=== PATIENT | male | born 1955 | race Caucasian/White ===

== ENCOUNTER → 2016-09-07 | Outpatient (REF) | payer BC ==
[2016-09-07 12:34] LABS: ALBUMIN 3.9 GM/DL (3.2-5.2); ALBUMIN/GLOBULIN RATIO 1.18 (1.00-1.93); ALKALINE PHOSPHATASE 79 U/L (45-117); ALT/SGPT 38 U/L (12-78); ANION GAP 4 MEQ/L (8-16); AST/SGOT 22 U/L (15-37); BILIRUBIN,TOTAL 0.8 MG/DL (0.2-1.0); BLOOD UREA NITROGEN 17 MG/DL (7-18); CALCIUM LEVEL 9.3 MG/DL (8.5-10.1); CARBON DIOXIDE LEVEL 32 MEQ/L (21-32); CHLORIDE LEVEL 103 MEQ/L (98-107); CHOLESTEROL LEVEL 188 MG/DL (<200); CREATININE FOR GFR 0.95 MG/DL (0.70-1.30); GLOMERULAR FILTRATION RATE > 60.0 (>56); GLUCOSE, FASTING 90 MG/DL (70-105); POTASSIUM SERUM 4.2 MEQ/L (3.5-5.1); SODIUM LEVEL 139 MEQ/L (136-145); TOTAL PROTEIN 7.2 GM/DL (6.4-8.2); TRIGLYCERIDES LEVEL 79 MG/DL (<150)
== END ==
LOC: M SFHCLERA 08:01
PROVIDERS: ATTEND Family Medicine
DX: I10 Essential (primary) hypertension (principal)

== ENCOUNTER 2017-06-27 09:03 | Day surgery (SDC) | payer BC ==
[2017-06-27] MEDS: NS 1,000 ML IV (09:29)
[2017-06-27] MEDS ORDERED: PROPOFOL 200 MG/20 ML VIAL As Ordered (10:09)
== END 2017-06-27 11:00 | disposition home or self-care (01) ==
LOC: M OPP 09:03
DX: Z12.11 Encounter for screening for malignant neoplasm of colon (principal); K64.0 First degree hemorrhoids; K57.30 Diverticulosis of large intestine without perforation or abscess without bleeding; R12 Heartburn; K21.9 Gastro-esophageal reflux disease without esophagitis; I10 Essential (primary) hypertension; G47.30 Sleep apnea, unspecified; Z79.899 Other long term (current) drug therapy; Z99.89 Dependence on other enabling machines and devices
CPT/HCPCS: 45378

== ENCOUNTER → 2017-10-17 | Outpatient (REF) | payer BC ==
[2017-10-17 12:15] LABS: HEMATOCRIT 42.6 % (42.0-52.0); HEMOGLOBIN 14.2 g/dl (13.5-17.5); MEAN CORPUSCULAR HEMOGLOBIN 26.2 pg (27.0-33.0); MEAN CORPUSCULAR HGB CONC 33.3 g/dl (32.0-36.5); MEAN CORPUSCULAR VOLUME 78.7 fl (80.0-96.0); PLATELET COUNT, AUTOMATED 248 10^3/uL (150-450); RED BLOOD COUNT 5.41 10^6/uL (4.30-6.10); RED CELL DISTRIBUTION WIDTH 14.6 % (11.5-14.5); WHITE BLOOD COUNT 5.2 10^3/uL (4.0-10.0)
[2017-10-17 12:41] LABS: ALBUMIN/GLOBULIN RATIO 1.14 (1.00-1.93); ALKALINE PHOSPHATASE 90 U/L (45-117); ALT/SGPT 45 U/L (12-78); ANION GAP 9 MEQ/L (8-16); AST/SGOT 29 U/L (7-37); BILIRUBIN,TOTAL 0.6 MG/DL (0.2-1.0); BLOOD UREA NITROGEN 6 MG/DL (7-18); CALCIUM LEVEL 8.9 MG/DL (8.5-10.1); CARBON DIOXIDE LEVEL 25 MEQ/L (21-32); CHLORIDE LEVEL 105 MEQ/L (98-107); CHOLESTEROL LEVEL 182 MG/DL (<200); CREATININE FOR GFR 0.78 MG/DL (0.70-1.30); GLOMERULAR FILTRATION RATE > 60.0 (>56); GLUCOSE, FASTING 69 MG/DL (70-100); HDL CHOLESTEROL 65 MG/DL (>40); LDL CHOLESTEROL 103.6 MG/DL (<100); MAGNESIUM LEVEL 2.2 MG/DL (1.8-2.4); NON-HDL-C 117 MG/DL; POTASSIUM SERUM 4.2 MEQ/L (3.5-5.1); SODIUM LEVEL 139 MEQ/L (136-145); TOTAL PROTEIN 7.5 GM/DL (6.4-8.2); TRIGLYCERIDES LEVEL 67 MG/DL (<150)
[2017-10-17 13:15] LABS: CREATININE, URINE 58.4 MG/DL; MALB URINE SIEMENS 15.8 MG/L
[2017-10-17 13:44] LABS: ESTIMATED AVERAGE GLUCOSE 105 MG/DL (60-110); HEMOGLOBIN A1c 5.3 %
== END ==
LOC: M SFHCLERA 09:34
DX: K21.9 Gastro-esophageal reflux disease without esophagitis (principal); I10 Essential (primary) hypertension
CPT/HCPCS: 83735

== ENCOUNTER → 2018-07-11 | Outpatient (REF) | payer BC ==
[~2018-07-11] MED LIST: HYDR12.55; IRBE150T12; LATA5OPD OU; OMEP40CA2; VIAG100T
[2018-07-11 12:15] LABS: ALBUMIN 4.2 GM/DL (3.2-5.2); ALT/SGPT 45 U/L (12-78); BILIRUBIN,TOTAL 0.8 MG/DL (0.2-1.0); BLOOD UREA NITROGEN 13 MG/DL (7-18); CALCIUM LEVEL 9.9 MG/DL (8.8-10.2); CARBON DIOXIDE LEVEL 30 MEQ/L (21-32); CHLORIDE LEVEL 101 MEQ/L (98-107); CHOLESTEROL LEVEL 149 MG/DL (<200); CHOLESTEROL RISK RATIO 2.223 (<5); CREATININE FOR GFR 0.85 MG/DL (0.70-1.30); GLOMERULAR FILTRATION RATE > 60.0 (>49); GLUCOSE, FASTING 94 MG/DL (70-100); HDL CHOLESTEROL 67 MG/DL (>40); LDL CHOLESTEROL 68 MG/DL (<100); NON-HDL-C 82 MG/DL; POTASSIUM SERUM 3.9 MEQ/L (3.5-5.1); SODIUM LEVEL 137 MEQ/L (136-145); TOTAL PROTEIN 7.4 GM/DL (6.4-8.2); TRIGLYCERIDES LEVEL 72 MG/DL (<150)
[2018-07-11 12:18] LABS: HEMOGLOBIN A1c 5.7 %
== END ==
LOC: M SFHCLERA 08:13
PROVIDERS: ATTEND Family Medicine
DX: Z12.5 Encounter for screening for malignant neoplasm of prostate (principal); I10 Essential (primary) hypertension
CPT/HCPCS: 80053; 80061; 83036; G0103

== ENCOUNTER → 2019-01-18 | Outpatient (REF) | payer BC ==
[~2019-01-18] MED LIST changes: +LATA0.0013 OU; -LATA5OPD OU; -OMEP40CA2; +OMEP40CA97
[2019-01-18 17:57] LABS: BLOOD UREA NITROGEN 12 MG/DL (7-18); CALCIUM LEVEL 9.8 MG/DL (8.8-10.2); CARBON DIOXIDE LEVEL 30 MEQ/L (21-32); CHLORIDE LEVEL 99 MEQ/L (98-107); CREATININE FOR GFR 1.17 MG/DL (0.70-1.30); GLOMERULAR FILTRATION RATE > 60.0 (>49); GLUCOSE, FASTING 85 MG/DL (70-100); POTASSIUM SERUM 4.3 MEQ/L (3.5-5.1); SODIUM LEVEL 136 MEQ/L (136-145)
== END ==
LOC: M SFHCLERA 14:02
PROVIDERS: ATTEND Family Medicine
DX: I10 Essential (primary) hypertension (principal)

== ENCOUNTER → 2019-08-01 | Outpatient (REF) | payer BC ==
[~2019-08-01] MED LIST changes: -IRBE150T12; +IRBE150T7
[2019-08-01 12:41] LABS: ALBUMIN 4.4 GM/DL (3.2-5.2); ALT/SGPT 52 U/L (12-78); BILIRUBIN,TOTAL 0.5 MG/DL (0.2-1.0); BLOOD UREA NITROGEN 14 MG/DL (7-18); CALCIUM LEVEL 9.4 MG/DL (8.8-10.2); CARBON DIOXIDE LEVEL 30 MEQ/L (21-32); CHLORIDE LEVEL 103 MEQ/L (98-107); CREATININE FOR GFR 0.79 MG/DL (0.70-1.30); GLOMERULAR FILTRATION RATE > 60.0 (>49); GLUCOSE, FASTING 89 MG/DL (70-100); POTASSIUM SERUM 4.5 MEQ/L (3.5-5.1); SODIUM LEVEL 138 MEQ/L (136-145); TOTAL PROTEIN 7.5 GM/DL (6.4-8.2)
[2019-08-01 12:42] LABS: HEMOGLOBIN A1c 5.5 %
[2019-08-01 12:55] LABS: CREATININE, URINE 16.7 MG/DL; MALB URINE SIEMENS 7.3 MG/L; MAU/CREAT RATIO 43.7 MCG/MG (0.0-30.0)
== END ==
LOC: M SFHCLERA 09:43
PROVIDERS: ATTEND Family Medicine
DX: I10 Essential (primary) hypertension (principal)
CPT/HCPCS: 80053; 82043; 83036; 84443; G0103

== ENCOUNTER → 2020-07-04 | Outpatient (REF) | payer BC ==
[2020-07-04 13:43] LABS: BASO # 0.1 10^3/uL (0.0-0.2); BASO % 1.1 % (0.0-1.0); EOS # 0.3 10^3/uL (0.0-0.5); EOS % 5.6 % (0.0-3.0); HEMATOCRIT 41.8 % (42.0-52.0); HEMOGLOBIN 13.2 g/dl (13.5-17.5); LYMPH # 1.2 10^3/uL (1.5-5.0); MEAN CORPUSCULAR HGB CONC 31.6 g/dl (32.0-36.5); MONO # 1.2 10^3/uL (0.0-0.8); MONO % 20.9 % (0.0-5.0); NEUTROPHILS # 2.8 10^3/uL (1.5-8.5); PLATELET COUNT, AUTOMATED 244 10^3/uL (150-450); RED BLOOD COUNT 5.29 10^6/uL (4.30-6.10); WHITE BLOOD COUNT 5.5 10^3/uL (4.0-10.0)
[2020-07-04 14:12] LABS: HEMOGLOBIN A1c 5.3 %
[2020-07-04 14:16] LABS: ALBUMIN 4.4 GM/DL (3.2-5.2); ALT/SGPT 44 U/L (12-78); BILIRUBIN,TOTAL 1.1 MG/DL (0.2-1.0); BLOOD UREA NITROGEN 14 MG/DL (7-18); CARBON DIOXIDE LEVEL 29 MEQ/L (21-32); CHLORIDE LEVEL 99 MEQ/L (98-107); CHOLESTEROL LEVEL 149 MG/DL (<200); CHOLESTEROL RISK RATIO 2.041 (<5); CREATININE FOR GFR 1.06 MG/DL (0.70-1.30); GLOMERULAR FILTRATION RATE > 60.0 (>49); GLUCOSE, FASTING 96 MG/DL (70-100); HDL CHOLESTEROL 73 MG/DL (>40); LDL CHOLESTEROL 56 MG/DL (<100); NON-HDL-C 76 MG/DL; POTASSIUM SERUM 4.4 MEQ/L (3.5-5.1); SODIUM LEVEL 135 MEQ/L (136-145); TOTAL PROTEIN 7.7 GM/DL (6.4-8.2); TRIGLYCERIDES LEVEL 99 MG/DL (<150)
== END ==
LOC: M SFHCLERA 09:27
PROVIDERS: ATTEND Family Medicine
DX: I10 Essential (primary) hypertension (principal); E78.5 Hyperlipidemia, unspecified; Z13.1 Encounter for screening for diabetes mellitus

== ENCOUNTER → 2020-07-29 | Outpatient (REF) | payer BC ==
[2020-07-29 15:34] LABS: ALT/SGPT 37 U/L (12-78); BILIRUBIN,DIRECT 0.1 MG/DL (0.0-0.2); BILIRUBIN,TOTAL 0.5 MG/DL (0.2-1.0); BLOOD UREA NITROGEN 16 MG/DL (7-18); CALCIUM LEVEL 9.4 MG/DL (8.8-10.2); CARBON DIOXIDE LEVEL 26 MEQ/L (21-32); CHLORIDE LEVEL 108 MEQ/L (98-107); CREATININE FOR GFR 1.02 MG/DL (0.70-1.30); GLOMERULAR FILTRATION RATE > 60.0 (>49); GLUCOSE, FASTING 113 MG/DL (70-100); POTASSIUM SERUM 4.6 MEQ/L (3.5-5.1); SODIUM LEVEL 141 MEQ/L (136-145); TOTAL PROTEIN 7.1 GM/DL (6.4-8.2)
[2020-07-29 15:42] LABS: INR 0.88; PROTHROMBIN TIME 12.1 SECONDS (12.5-14.3)
== END ==
LOC: M SFHCLERA 12:46
PROVIDERS: ATTEND Family Medicine
DX: R17 Unspecified jaundice (principal)

== ENCOUNTER 2021-04-03 12:22 | Emergency (ER) | payer BC ==
[~2021-04-03] VITALS: Ht 177.8 cm; Wt 96.6 kg
[~2021-04-03 12:22] MED LIST changes: +OMEP40CA4; -OMEP40CA97
--- OUTSIDE RECORDS SUMMARY | 2021-04-03 12:30 | CCD ---
Author Author [facility] Organization [facility] Address Unknown Phone Unavailable Support Name Relationship Address Phone [employer] Next Of Kin [address] [place] [address] JAVIER BONILLA Next Of Kin [address] [place] [address] [employer] Next Of Kin [address] [place] [address] [place] [address] JAVIER BONILLA [place] [address] Unavailable Re-disclosure Warning The records that you are about to access may contain information from federally-assisted alcohol or drug abuse programs. If such information is present, then the following federally mandated warning applies: This information has been disclosed to you from records protected by federal confidentiality rules (42 CFR part 2). The federal rules prohibit you from making any further disclosure of this information unless further disclosure is expressly permitted by the written consent of the person to whom it pertains or as otherwise permitted by 42 CFR part 2. A general authorization for the release of medical or other information is NOT sufficient for this purpose. The Federal rules restrict any use of the information to criminally investigate or prosecute any alcohol or drug abuse patient.The records that you are about to access may contain highly sensitive health information, the redisclosure of which is protected by Article 27-F of the [facility] Public Health law. If you continue you may have access to information: Regarding HIV / AIDS; Provided by facilities licensed or operated by the [facility] Office of Mental Health; or Provided by the [facility] Office for People With Developmental Disabilities. If such information is present, then the following [facility] mandated warning applies: This information has been disclosed to you from confidential records which are protected by state law. State law prohibits you from making any further disclosure of this information without the specific written consent of the person to whom it pertains, or as otherwise permitted by law. Any unauthorized further disclosure in violation of state law may result in a fine or detention sentence or both. A general authorization for the release of medical or other information is NOT sufficient authorization for further disc losure. Family History Family Member Name Family Member Gender Family Member Status Date o f Status Description Data Source(s) Unknown Female Problem [facility] Unknown Male Problem [facility] ([facility] () Unknown Unknown Problem MEDENT ([facility]) mother- Encounters Encounter Providers Location Date Indications Data Source(s ) Unknown [address] [facility] [id number] 03/10/2021 12:00:00 AM EDT [facility] Unknown [address] [facility] [id number] 09/22/2020 12:00:00 AM EDT eCW1 (Critical access hospital) Outpatient [address] [facility] [address] [address] 07/15/2020 12:00:00 AM EST eCW1 (Critical access hospital) Unknown [address] [facility] [id number] 05/07/2020 12:00:00 AM EST eCW1 (Critical access hospital) Unknown [address] [facility] [address] 04/21/2020 12:00:00 AM EST eCW1 (Critical access hospital) Unknown [address] [facility] [address] [address] 04/16/2020 12:00:00 AM EST eCW1 (Critical access hospital) [facility] [address] [facility] [id number] 02/06/2020 12:00:00 AM EDT eCW1 (Critical access hospital) Immunizations Vaccine Date Status Description Data Source(s) COVID-19 VACCINE Pfizer 09/03/2020 12:00:00 AM EDT completed [facility] Vaccine Series Complete: YESThis Data wa s Submitted to [facility] Via [employer]. COVID-19 VACCINE Pfizer 08/13/2020 12:00:00 AM EST completed [facility] Vaccine Series Complete: NOThis Data was Submitted to [facility] Via [employer]. Medications Medication Brand Name Start Date Product Form Dose Route Admi nistrative Instructions Pharmacy Instructions Status Indications Reaction Description Data Source(s) 40 mg 03/21/2021 12:00:00 AM EDT capsule,delayed release (DR/EC) 90 TAKE ONE CAPSULE BY MOUTH EVERY DAY TAKE ONE CAPSULE BY MOUTH EVERY DAY SOLD: 03/22/2021 [facility] 300 mg 03/14/2021 12:00:00 AM EDT tablet 90 TAKE ONE TABLET BY MOUTH EVERY DAY TAKE ONE TABLET BY MOUTH EVERY DAY SOLD: 03/16/2021 [facility] 100 mg 01/12/2021 12:00:00 AM EDT tablet 6 TAKE ONE TABLET BY MOUTH EVERY DAY NEEDED TAKE ONE TABLET BY MOUTH EVERY DAY NEEDED SOLD: 03/13/2021 [facility] 100 mg 01/12/2021 12:00:00 AM EDT tablet 6 TAKE ONE TABLET BY MOUTH EVERY DAY NEEDED TAKE ONE TABLET BY MOUTH EVERY DAY NEEDED SOLD: 02/11/2021 [facility] 100 mg 01/12/2021 12:00:00 AM EDT tablet 6 TAKE ONE TABLET BY MOUTH EVERY DAY NEEDED TAKE ONE TABLET BY MOUTH EVERY DAY NEEDED SOLD: 01/14/2021 [facility] atorvastatin 20 MG Oral Tablet ATORVASTATIN CALCIUM 10/28/2020 1 2:00:00 AM EDT tablet 90 TAKE 1 TABLET BY MOUTH ONCE A DAY TAKE 1 TABLET BY MOUTH ONCE A DAY SOLD: 01/27/2021 [facility] atorvastatin 20 MG Oral Tablet ATORVASTATIN CALCIUM 10/28/2020 1 2:00:00 AM EDT tablet 90 TAKE 1 TABLET BY MOUTH ONCE A DAY TAKE 1 TABLET BY MOUTH ONCE A DAY SOLD: 10/29/2020 [facility] 40 mg 09/25/2020 12:00:00 AM EDT capsule,delayed release (DR/EC) 90 TAKE ONE CAPSULE BY MOUTH EVERY DAY TAKE ONE CAPSULE BY MOUTH EVERY DAY SOLD: 09/26/2020 [facility] 40 mg 09/25/2020 12:00:00 AM EDT capsule,delayed release (DR/EC) 90 TAKE ONE CAPSULE BY MOUTH EVERY DAY TAKE ONE CAPSULE BY MOUTH EVERY DAY SOLD: 12/23/2020 [facility] 300 mg 09/17/2020 12:00:00 AM EDT tablet 90 TAKE ONE TABLET BY MOUTH EVERY DAY TAKE ONE TABLET BY MOUTH EVERY DAY SOLD: 12/17/2020 [facility] 300 mg 09/17/2020 12:00:00 AM EDT tablet 90 TAKE ONE TABLET BY MOUTH EVERY DAY TAKE ONE TABLET BY MOUTH EVERY DAY SOLD: 09/18/2020 [facility] 0.01 % 08/09/2020 12:00:00 AM EST drops 7 INSTILL 1 DROP INTO BOTH EYES AT BEDTIME DIRECTED INSTILL 1 DROP INTO BOTH EYES AT BEDTIME DIRECTED S OLD: 08/10/2020 [facility] 100 mg 07/16/2020 12:00:00 AM EST tablet 6 TAKE ONE TABLET BY MOUTH EVERY DAY NEEDED TAKE ONE TABLET BY MOUTH EVERY DAY NEEDED SOLD: 09/15/2020 [facility] 100 mg 07/16/2020 12:00:00 AM EST tablet 6 TAKE ONE TABLET BY MOUTH EVERY DAY NEEDED TAKE ONE TABLET BY MOUTH EVERY DAY NEEDED SOLD: 10/13/2020 [facility] 100 mg 07/16/2020 12:00:00 AM EST tablet 6 TAKE ONE TABLET BY MOUTH EVERY DAY NEEDED TAKE ONE TABLET BY MOUTH EVERY DAY NEEDED SOLD: 12/09/2020 [facility] 100 mg 07/16/2020 12:00:00 AM EST tablet 6 TAKE ONE TABLET BY MOUTH EVERY DAY NEEDED TAKE ONE TABLET BY MOUTH EVERY DAY NEEDED SOLD: 11/11/2020 [facility] 100 mg 07/16/2020 12:00:00 AM EST tablet 6 TAKE ONE TABLET BY MOUTH EVERY DAY NEEDED TAKE ONE TABLET BY MOUTH EVERY DAY NEEDED SOLD: 07/18/2020 [facility] 100 mg 07/16/2020 12:00:00 AM EST tablet 6 TAKE ONE TABLET BY MOUTH EVERY DAY NEEDED TAKE ONE TABLET BY MOUTH EVERY DAY NEEDED SOLD: 08/16/2020 [facility] 300 mg 06/10/2020 12:00:00 AM EST tablet 90 TAKE ONE TABLET BY MOUTH EVERY DAY TAKE ONE TABLET BY MOUTH EVERY DAY SOLD: 06/11/2020 [facility] 50 mcg/actuation 04/22/2020 12:00:00 AM EST spray,suspension 16 SPRAY 1 SPRAY IN EACH NOSTRIL ONCE A DAY SPRAY 1 SPRAY IN EACH NOSTRIL ONCE A DAY SOLD: 04/24/2020 [facility] 40 mg 03/29/2020 12:00:00 AM EDT capsule,delayed release (DR/EC) 90 TAKE ONE CAPSULE BY MOUTH EVERY DAY TAKE ONE CAPSULE BY MOUTH EVERY DAY SOLD: 06/29/2020 [facility] 40 mg 03/29/2020 12:00:00 AM EDT capsule,delayed release (DR/EC) 90 TAKE ONE CAPSULE BY MOUTH EVERY DAY TAKE ONE CAPSULE BY MOUTH EVERY DAY SOLD: 03/31/2020 [facility] 100 mg 02/13/2020 12:00:00 AM EDT tablet 6 TAKE ONE TABLET BY MOUTH EVERY DAY NEEDED TAKE ONE TABLET BY MOUTH EVERY DAY NEEDED SOLD: 02/15/2020 [facility] 300 mg 12/17/2019 12:00:00 AM EDT tablet 90 TAKE 1 TABLET BY MOUTH ONCE A DAY TAKE 1 TABLET BY MOUTH ONCE A DAY SOLD: 03/15/2020 [facility] atorvastatin 20 MG Oral Tablet ATORVASTATIN CALCIUM 10/30/2019 1 2:00:00 AM EDT tablet 90 TAKE ONE TABLET BY MOUTH EVERY D AY TAKE ONE TABLET BY MOUTH EVERY DAY SOLD: 02/03/2020 [facility] atorvastatin 20 MG Oral Tablet ATORVASTATIN CALCIUM 10/30/2019 1 2:00:00 AM EDT tablet 90 TAKE ONE TABLET BY MOUTH EVERY D AY TAKE ONE TABLET BY MOUTH EVERY DAY SOLD: 08/02/2020 [facility] atorvastatin 20 MG Oral Tablet ATORVASTATIN CALCIUM 10/30/2019 1 2:00:00 AM EDT tablet 90 TAKE ONE TABLET BY MOUTH EVERY D AY TAKE ONE TABLET BY MOUTH EVERY DAY SOLD: 05/05/2020 [facility] 25 mg 09/26/2019 12:00:00 AM EDT tablet 90 TAKE 1 TABLET BY MOUTH ONCE A DAY IN THE MORNING TAKE 1 TABLET BY MOUTH ONCE A DAY IN THE MORNING SOLD: 06/27/2020 [facility] 25 mg 09/26/2019 12:00:00 AM EDT tablet 90 TAKE 1 TABLET BY MOUTH ONCE A DAY IN THE MORNING TAKE 1 TABLET BY MOUTH ONCE A DAY IN THE MORNING SOLD: 03/24/2020 [facility] 50 mcg/actuation 08/17/2019 12:00:00 AM EDT spray,suspension 16 SPRAY 1 SPRAY IN EACH NOSTRIL ONCE A DAY SPRAY 1 SPRAY IN EACH NOSTRIL ONCE A DAY SOLD: 02/15/2020 [facility] Insurance Providers Payer name Policy type / Coverage type Policy ID Covered republican ID Covered republican's relationship to [place] Policy [place] Plan Information [employer] [place] [id number] SP [id number] [employer] [place] 304/[id number] SP [id number] BCBS [facility] [id number] Self S [id number] BCBS [facility] B [id number] Self S [id number] [facility] Part B [id number] Self [id number] BCBS [employer] [id number] Self [id number] BCBS [employer] [id number] Self [id number] [employer] [id number] Self [id number] [employer] [id number] Self BCBS [place] PPO 302/307 [id number] SP [id number] [employer] [place] Commercial [id number] Self [id number] BCBS [place] PPO 302/307 [id number] [id number] ANSI-Commercial [id number] BCBS [place] PPO 302/307 [id number] SP [id number] SP [id number] ANSI-Commercial [id number] [place]BS [place] PPO 302/307 [id number] SP [id number] Problems, Conditions, and Diagnoses Code Display Name Description Problem Type Effective Dates Data Source(s) G47.00 [id number] Insomnia, unspecified type Problem 12:00:00 AM EST eCW1 ([facility]) Surgeries/Procedures No Information Results ID Date Data Source PT-INR 07/29/2020 12:00:00 AM EST eCW1 (Critical access hospital) Name Value Range Interpretation Code Description Data Sybil rce(s) Supporting Document(s) INR in Platelet poor plasma by Coagulation assay 0.88 INR eCW1 ([facility]) Prothrombin time (PT) 12.1 12.5-14.3 PROTHROMBIN TI ME eCW1 ([facility]) ID Date Data Source Comprehensive Metabolic Profile (CMP) 07/29/2020 12:00:00 AM EST eCW1 ([facility]) Name Value Range Interpretation Code Description Data Sybil rce(s) Supporting Document(s) 16 7-18 BLOOD UREA NITROGEN eCW1 ([facility]) 113 70-100 GLUCOSE, FASTING eCW1 (Critical access hospital) 4.6 3.5-5.1 POTASSIUM SERUM eCW1 ([facility]) > 60.0 >49 GLOMERULAR FILTRATION RATE eCW 1 ([facility]) 141 136-145 SODIUM LEVEL eCW1 ([facility]) 1.02 0.70-1.30 CREATININE FOR GFR eCW1 ([facility]) 15 7-37 AST/SGOT eCW1 ([facility]) 26 21-32 CARBON DIOXIDE LEVEL eCW1 ([facility]) 108 98-107 CHLORIDE LEVEL eCW1 ([facility]) 9.4 8.8-10.2 CALCIUM LEVEL eCW1 ([facility]) 37 12-78 ALT/SGPT eCW1 ([facility]) 7.1 6.4-8.2 TOTAL PROTEIN eCW1 ([facility]) 0.5 0.2-1.0 BILIRUBIN,TOTAL eCW1 ([facility]) 70 45-117 ALKALINE PHOSPHATASE eCW1 ([facility]) 1.3 ALBUMIN/GLOBULIN RATIO eCW1 ([facility]) 4.0 3.2-5.2 ALBUMIN eCW1 ([facility]) ID Date Data Source BILIRUBIN,DIRECT 07/29/2020 12:00:00 AM EST eCW1 (Critical [facility] hospital) Name Value Range Interpretation Code Description Data Sybil rce(s) Supporting Document(s) 0.1 0.0-0.2 BILIRUBIN,DIRECT eCW1 ([facility]) Procedure Social History Code Duration Value Status Description Data Source(s ) Smoking 10/29/2020 12:00:00 AM EDT Never Smoker completed Never S moker eCW1 ([facility]) Smoking 07/15/2020 12:00:00 AM EST Never Smoker completed Never S moker eCW1 ([facility]) Smoking 07/15/2020 12:00:00 AM EST Never Smoker completed Never S moker eCW1 ([facility]) Vital Signs ID Date Data Source UNK Name Value Range Interpretation Code Description Data Source(s) Body weight 212 [lb_av] 212 [lb_av] eCW1 ([facility]) Body height 70 [in_i] 70 [in_i] eCW1 ([facility] hospital) Body mass index (BMI) [Ratio] 30.42 kg/m2 30.42 kg/m2 eCW1 ([facility]) Heart rate 80 /min 80 /min eCW1 ([facility]) Respiratory rate 16 /min 16 /min eCW1 ([facility]) Body temperature 99.0 [degF] 99.0 [degF] eCW1 ( [facility]) Systolic blood pressure 145 mm[Hg] 145 mm[Hg] e CW1 ([facility]) Diastolic blood pressure 93 mm[Hg] 93 mm[Hg] eCW1 ([facility])
--- OUTSIDE RECORDS SUMMARY | 2021-04-03 12:30 | CCD ---
Author Author [facility] Organization [facility] Address Unknown Phone Unavailable Care Team Providers Care Aviation Safety Technician Name Role Phone Chandrakant Hopkins Unavailable PROBLEMS Type Condition ICD9-CM Code XUL96-LP Code Onset Dates Condition S tatus W/U Status Risk SNOMED Code Notes Problem Left-sided low back pain with left-sided sciatica M54.42 Active confirmed 039979659 Problem Essential hypertension with goal blood pressure less t forrester 140\/90 I10 Active confirmed 18104874 Problem Erectile dysfunction due to diseases classified elsewhere N52.1 Active confirmed 373731989 Problem Seasonal allergies J30.2 Active confirmed 4 85876060 Problem DASH on CPAP G47.33 Active confirmed 12564123 Problem Insomnia, unspecified type G47.00 Active confirmed 272878254 Problem Gastroesophageal reflux disease without esophagitis K21.9 Active confirmed 062674771 Problem Constipation, unspecified constipation type K59.00 Active confirmed 86886902 Problem Essential hypertension I10 Active confirmed 89686303 Problem Erectile dysfunction, unspecified erectile dysfunction typ e N52.9 Active confirmed 577584882 Problem Hyperlipidemia, unspecified hyperlipidemia type E7 8.5 Active confirmed 97963794 ALLERGIES No Known Allergies ENCOUNTERS from 1955 to 2021-03-13 Encounter Location Date Provider Diagnosis [address] [phone] [place] [address] 05 Mar, 2021 Chandrakant Hopkins IMMUNIZATIONS Vaccine Route Administration Date Status Influenza 6mo & up Fluzone Unknown Jun 30, 2017 Refus ed SOCIAL HISTORY Tobacco Use: Social History Observation Description Date Details (start date - stop date) Never Smoker Sex Assigned At : Social History Observation Description Sex Assigned At Unknown Education: Question Answer Notes Level of Education: High School Language: Question Answer Notes Languages spoken: Citizen Of [place] Latter-Day: Question Answer Notes Latter-Day 33 None Domestic Violence: Question Answer Notes Status: Sexual Hx: Question Answer Notes Had sex in the last 12 months (vaginal, oral, or anal)? Yes Have you ever had an STD? No Prevention Strategies discussed: Other with Women only Use protection? No Alcohol Screening: Question Answer Notes Did you have a drink containing alcohol in the past year? Ye s Points 1 Interpretation Negative How often did you have six or more drinks on one occas ion in the past year? Never (0 points) How many drinks did you have on a typica l day when you were drinking in the past year? 1 or 2 (0 points) How often did you have a drink containing alcohol in t he past year? Monthly or less (1 point) BMI Care Goal Follow-Up Question Answer Notes Above Normal BMI Follow-Up Giving encouragement to exercise Tobacco Use: Question Answer Notes Are you a: never smoker REASON FOR REFERRAL No Information VITAL SIGNS No information MEDICATIONS Medication SIG (Take, Route, Frequency, Duration) Notes Start Da te End Date Status Omeprazole 40 MG 1 capsule Orally once daily for 90 days Active Fluticasone Propionate 50 MCG/ACT 1 spray in each nost ril Nasally Once a day for 90 days Not-Taking Fish Oil 500 MG 1 capsule Orally Twice a day for 30 day(s) Not-Taking Irbesartan 300 MG 1 tablet Orally Once a day for 90 days Active Sildenafil Citrate 100 MG TAKE ONE TABLET BY MOUTH EVERY DAY NEEDED for 30 Active Aspirin 81 MG 1 tablet Orally Once a day Jun, Active Atorvastatin Calcium 20 MG 1 tablet Orally Once a day for 90 Active PROCEDURES No Information RESULTS No Results REASON FOR VISIT PA Sildenafil Citrate 100mg tablets, #12/03 MEDICAL (GENERAL) HISTORY Type Description Date Medical History Gastroesophageal reflux disease without esophagitis Medical History Left-sided low back pain with left-sided sciatica Medical History Erectile dysfunction due to diseases cla ssified elsewhere Medical History DASH on CPAP Medical History Essential hypertension with goal blood pressure less than 140\/90 Medical History Insomnia Surgical History Broken nose 19yrs old Surgical History Appendicitis 20yrs old Surgical History Endoscopy, colonoscopy 06/2017 Hospitalization History surgical related Goals Section No Information Health Concerns No Information MEDICAL EQUIPMENT No Information MENTAL STATUS No Information FUNCTIONAL STATUS No Information ASSESSMENTS No Information PLAN OF TREATMENT Medication Medication Name Sig Start Date Stop Date Omeprazole 40 MG 1 capsule Orally once daily for 90 days Sildenafil Citrate 100 MG TAKE ONE TABLET BY MOUTH EVERY DAY NEEDED for 30 Irbesartan 300 MG 1 tablet Orally Once a day for 90 days Next Appt Details Provider Name:Chandrakant Hopkins, 2021-05-06 07:30:00 AM, [id number] [facility], , [place], [address], Insurance Providers Payer Name Payer Address Payer Phone Insured Name Patient Relati onship to Insured Coverage Start Date Coverage End Date BCBS [place] PPO [phone] [facility] [place] [address] ALEXEY BONILLA 2014
[2021-04-03] MEDS: TETRACAINE 0.5% OPHTH SOLN 4ML OS ONE (15:40)
[2021-04-03] MEDS: FLUORESCEIN OPHTH 1 MG STRIP OS ONE (15:40)
[2021-04-03] MEDS ORDERED: NEUR300C PO (16:34)
[2021-04-03] MEDS ORDERED: VALT1TAB PO (16:34)
--- OUTSIDE RECORDS SUMMARY | 2021-04-03 16:49 | CCD ---
Author Author [facility] Organization [facility] Address Unknown Phone Unavailable Support Name Relationship Address Phone [employer] Next Of Kin [address] [place] [address] JAVIER BONILLA Next Of [place] [address] [place] [address] [employer] Next Of Kin [address] [place] [address] [place] [address] JAVIER BONILLA [address] [address] Unavailable Re-disclosure Warning The records that you [...] is protected by Article 27-F of the [facility] Public Health law. If you continue you may have access to information: Regarding HIV / AIDS; Provided by facilities licensed or operated by the [facility] Office of Mental Health; or Provided by the [facility] Office for People With Developmental Disabilities. If such information is present, then the following [facility] mandated warning applies: This information has [...] law may result in a fine or nursing home sentence or both. A general authorization for the release of medical or other information is NOT sufficient authorization for further disc losure. Family History Family Member Name Family Member Gender Family Member Status Date o f Status Description Data Source(s) Unknown Female Problem [facility] ([facility] Unknown Male Problem [facility] ([facility] () Unknown Unknown Problem MEDENT ([facility], [facility]) mother- Encounters Encounter Providers Location Date Indications Data Source(s ) Unknown [address] [facility] [id number] 03/10/2021 12:00:00 AM EDT eCW1 [facility]) Unknown [address] [facility] [id number] 09/22/2020 12:00:00 AM EDT eCW1 ([facility]) Outpatient [address] [facility] [address] [address] 07/15/2020 12:00:00 AM EST eCW1 ([facility]) Unknown [address] [facility] [id number] 05/07/2020 12:00:00 AM EST eCW1 ([facility]) Unknown [address] [facility] [address] [address] 04/21/2020 12:00:00 AM EST eCW1 ([facility]) Unknown [address] [facility] [address] [id number] 04/16/2020 12:00:00 AM EST eCW1 ([facility]) [facility] [address] [facility] [id number] 02/06/2020 12:00:00 AM EDT eCW1 ([facility]) Immunizations Vaccine Date Status Description Data Source(s) COVID-19 VACCINE Pfizer 09/03/2020 12:00:00 AM EDT completed [facility] Vaccine Series Complete: YESThis Data wa s Submitted to [facility] [employer]. COVID-19 VACCINE Pfizer 08/13/2020 12:00:00 AM EST completed [facility] Vaccine Series Complete: NOThis Data was Submitted to [facility] [employer]. Medications Medication Brand Name Start Date Product [...] BY MOUTH EVERY DAY NEEDED SOLD: 11/11/2020 [facility] 100 mg 07/16/2020 12:00:00 AM [...] EACH NOSTRIL ONCE A DAY SOLD: 04/24/2020 [facility] 40 mg 03/29/2020 12:00:00 AM [...] type / Coverage type Policy ID Covered libertarian ID Covered libertarian's relationship to [place] Policy [place] Plan Information [employer] [place] 304/804 [id number] SP [id number] [employer] [place] 304/804 [id number] SP [id number] BCBS [facility] [id number] Self S [id number] BCBS [facility] B [id number] Self S [id number] [facility] Part B [id number] Self [id number] [employer]BS [employer] [id number] Self [id number] [employer]BS [employer] [id number] Self [id number] [employer] [id number] Self [id number] [employer] [id number] Self [employer]BS [place] P[place] 302/307 [id number] SP [id number] [employer] [place] Commercial [id number] Self [id number] [employer] [place] P[place] 302/307 [id number] [place] [id number] [employer] [id number] [employer]BS [place] P[place] 302/307 [id number] SP [id number] SP [id number] [employer] [id number] [employer] [place] PPO 302/307 [id number] SP [id number] Problems, Conditions, and Diagnoses Code Display Name Description Problem Type Effective Dates Data Source(s) G47.00 [id number] Insomnia, unspecified type Problem 12:00:00 AM EST eCW1 ([facility]) Surgeries/Procedures No Information Results ID Date Data Source PT-INR 07/29/2020 12:00:00 AM EST e[facility] Name Value Range Interpretation Code Description Data Sybil rce(s) Supporting Document(s) INR in Platelet poor plasma by Coagulation assay 0.88 INR eCW1 ([facility]) Prothrombin time (PT) 12.1 12.5-14.3 PROTHROMBIN TI ME eCW1 ([facility]) ID Date Data Source Comprehensive Metabolic Profile (CMP) 07/29/2020 12:00:00 AM EST eCW1 ([facility]) Name Value Range Interpretation Code Description Data Sybil rce(s) Supporting Document(s) 16 7-18 BLOOD UREA NITROGEN eCW1 ([facility]) 113 70-100 GLUCOSE, FASTING eCW1 ([facility]) 4.6 3.5-5.1 POTASSIUM SERUM eCW1 ([facility]) > 60.0 >49 GLOMERULAR FILTRATION RATE eCW 1 ([facility]) 141 136-145 SODIUM LEVEL eCW1 ([facility]) 1.02 0.70-1.30 CREATININE FOR GFR eCW1 ([facility]) 15 7-37 AST/SGOT eCW1 ([facility]) 26 21-32 CARBON DIOXIDE LEVEL eCW1 ([facility]) 108 98-107 CHLORIDE LEVEL eCW1 ([facility]) 9.4 8.8-10.2 CALCIUM LEVEL eCW1 ([facility]) 37 12-78 ALT/SGPT eCW1 ([facility]) 7.1 6.4-8.2 TOTAL PROTEIN eCW1 ([facility]) 0.5 0.2-1.0 BILIRUBIN,TOTAL eCW1 ([facility]) 70 45-117 ALKALINE PHOSPHATASE eCW1 ([facility]) 1.3 ALBUMIN/GLOBULIN RATIO eCW1 ([facility]) 4.0 3.2-5.2 ALBUMIN eCW1 ([facility]) ID Date Data Source BILIRUBIN,DIRECT 07/29/2020 12:00:00 AM EST eCW1 ([facility]) Name Value Range Interpretation Code Description Data Sybil rce(s) Supporting Document(s) 0.1 0.0-0.2 BILIRUBIN,DIRECT eCW1 ([facility]) Procedure Social History Code Duration Value Status Description Data Source(s ) Smoking 10/29/2020 12:00:00 AM EDT Never Smoker completed Never S moker eCW1 ([facility]) Smoking 07/15/2020 12:00:00 AM EST Never Smoker completed Never S moker eCW1 ([facility]) Smoking 07/15/2020 12:00:00 AM EST Never Smoker completed Never S moker eCW1 ([facility]) Vital Signs ID Date Data Source UNK Name Value Range Interpretation Code Description Data Source(s) Body weight 212 [lb_av] 212 [lb_av] eCW1 ([facility]) Body height 70 [in_i] 70 [in_i] eCW1 ([facility]) Body mass index (BMI) [Ratio] 30.42 kg/m2 30.42 kg/m2 eCW1 ([facility]) Heart rate 80 /min 80 /min eCW1 ([facility]) Respiratory rate 16 /min 16 /min eCW1 ([facility]) Body temperature 99.0 [degF] 99.0 [degF] eCW1 ( [facility]) Systolic blood pressure 145 mm[Hg] 145 mm[Hg] e CW1 ([facility]) Diastolic blood pressure 93 mm[Hg] 93 mm[Hg] eCW1 ([facility])
[2021-04-03 17:36] VITALS: BP 180/101
== END 2021-04-03 17:38 | disposition home or self-care (01) ==
LOC: M ED 12:22
DX: H57.11 Ocular pain, right eye (principal); B02.8 Zoster with other complications; I10 Essential (primary) hypertension; Z79.899 Other long term (current) drug therapy

== ENCOUNTER → 2021-07-02 | Outpatient (REF) | payer BC ==
[~2021-07-02] MED LIST changes: +NEUR300C PO; +VALT1TAB PO
[2021-07-02 14:13] LABS: ALBUMIN 3.9 GM/DL (3.2-5.2); ALT/SGPT 46 U/L (12-78); BILIRUBIN,TOTAL 0.6 MG/DL (0.2-1.0); BLOOD UREA NITROGEN 12 MG/DL (7-18); CALCIUM LEVEL 9.5 MG/DL (8.8-10.2); CARBON DIOXIDE LEVEL 27 MEQ/L (21-32); CHLORIDE LEVEL 108 MEQ/L (98-107); CHOLESTEROL LEVEL 138 MG/DL (<200); CHOLESTEROL RISK RATIO 2.156 (<5); CREATININE FOR GFR 0.82 MG/DL (0.70-1.30); GLOMERULAR FILTRATION RATE > 60.0 (>49); GLUCOSE, FASTING 93 MG/DL (70-100); HDL CHOLESTEROL 64 MG/DL (>40); LDL CHOLESTEROL 54 MG/DL (<100); NON-HDL-C 74 MG/DL; SODIUM LEVEL 141 MEQ/L (136-145); TOTAL PROTEIN 7.1 GM/DL (6.4-8.2); TRIGLYCERIDES LEVEL 99 MG/DL (<150)
== END ==
LOC: M WUC 11:16
PROVIDERS: ATTEND Family Medicine
DX: Z12.5 Encounter for screening for malignant neoplasm of prostate (principal); E78.5 Hyperlipidemia, unspecified
CPT/HCPCS: 36415; 80053; 80061; G0103

== ENCOUNTER → 2022-05-05 | Outpatient (CLI) | payer BC ==
[2022-05-05 13:49] LABS: ALKALINE PHOSPHATASE 64 U/L (46-116); ALT/SGPT 50 U/L (7.0-40); AST/SGOT 29 U/L (<34); BILIRUBIN,TOTAL 0.5 MG/DL (0.3-1.2); BLOOD UREA NITROGEN 11 MG/DL (9-23); CALCIUM LEVEL 9.3 MG/DL (8.3-10.6); CARBON DIOXIDE LEVEL 27 MMOL/L (20-31); CHLORIDE LEVEL 103 MMOL/L (98-107); CHOLESTEROL LEVEL 143 MG/DL (<200); CHOLESTEROL RISK RATIO 2.34 (<5); CREATININE FOR GFR 0.84 MG/DL (0.70-1.30); GLOMERULAR FILTRATION RATE > 60.0 (>49); GLUCOSE, FASTING 92 MG/DL (74-106); HDL CHOLESTEROL 61.1 MG/DL (>40); LDL CHOLESTEROL 64.7 MG/DL (<100); NON-HDL-C 82 MG/DL; POTASSIUM SERUM 4.2 MMOL/L (3.5-5.1); SODIUM LEVEL 138 MMOL/L (136-145); TRIGLYCERIDES LEVEL 86 MG/DL (<150)
== END ==
LOC: M WUC 09:37
PROVIDERS: ATTEND Family Medicine
DX: E78.5 Hyperlipidemia, unspecified (principal)

== ENCOUNTER → 2023-03-31 | Outpatient (CLI) | payer MEDICARE ==
[~2023-03-31] MED LIST changes: +ATOR1TAB21 PO; +B-12100010 PO; +BAYE81TA7 PO; +D32000CA PO; +FLUT15.820; +GABA-282 PO; +IRBE300T7 PO; +LEXA1TAB2 PO; +PANT40TA29 PO; +XALA0.007 OU
[2023-03-31 14:31] LABS: HEMOGLOBIN A1c 4.8 % (4.0-6.0)
[2023-03-31 14:44] LABS: ALKALINE PHOSPHATASE 76 U/L (46-116); ALT/SGPT 38 U/L (7.0-40); AST/SGOT 26 U/L (<34); BILIRUBIN,TOTAL 0.9 MG/DL (0.3-1.2); BLOOD UREA NITROGEN 12 MG/DL (9-23); CALCIUM LEVEL 9.2 MG/DL (8.3-10.6); CARBON DIOXIDE LEVEL 27 MMOL/L (20-31); CHLORIDE LEVEL 102 MMOL/L (98-107); CHOLESTEROL LEVEL 136 MG/DL (<200); CHOLESTEROL RISK RATIO 1.83 (<5); CREATININE FOR GFR 0.88 MG/DL (0.70-1.30); GLOMERULAR FILTRATION RATE > 60.0 (>49); GLUCOSE, FASTING 83 MG/DL (74-106); HDL CHOLESTEROL 74.2 MG/DL (>40); NON-HDL-C 61.8 MG/DL; POTASSIUM SERUM 4.2 MMOL/L (3.5-5.1); SODIUM LEVEL 139 MMOL/L (136-145); TOTAL PROTEIN 7.1 G/DL (5.7-8.2); TRIGLYCERIDES LEVEL 74 MG/DL (<150)
== END ==
LOC: M WUC 09:24
PROVIDERS: ATTEND Family Medicine
DX: E78.5 Hyperlipidemia, unspecified (principal); Z12.5 Encounter for screening for malignant neoplasm of prostate; E66.3 Overweight
CPT/HCPCS: 36415; 80053; 80061; 83036; G0103

== ENCOUNTER 2023-08-09 10:59 | Day surgery (SDC) | payer MEDICARE ==
[~2023-08-09] VITALS: Ht 175.3 cm; Wt 97.6 kg
[~2023-08-09 10:59] MED LIST changes: +IRBE150T27; -IRBE150T7; +IRBE300T25 PO; -IRBE300T7 PO; +MIDAZOLAM INJ 2MG/2ML VIAL As Ordered ONE; +fentaNYL 100 MCG/2 ML INJECTION As Ordered ONE
[2023-08-09] MEDS: PROPARACAINE 0.5% OPHTH SOL 15ML OD ONE (11:35)
[2023-08-09] MEDS: TROPICAMIDE 1% OPHTH SOLN 15ML OD SCH (11:35)
[2023-08-09] MEDS: OFLOXACIN 0.3 % (OCUFLOX) OPTH SOL 5ML OD SCH (11:36)
[2023-08-09] MEDS: ATROPINE SULFATE 1% OPHTH SOLN 2ML BTL OD SCH (11:36)
[2023-08-09] MEDS: PHENYLEPHRINE 2.5% OPHTH SOL 2ML OD SCH (11:36)
[2023-08-09] MEDS: BSS IRR 500ML/OMIDRIA 4ML IRR BAG (OR ONLY) As Ordered ONE (12:17)
[2023-08-09] MEDS: CEFUROXIME 1MG/0.1ML INTRACAMERAL INJ As Ordered ONE (12:17)
[2023-08-09] MEDS: LIDOCAINE 1% SDV 5ML VIAL As Ordered ONE (12:17)
[2023-08-09] MEDS ORDERED: TOBRADEX OPHTH SUSP 2.5 ML As Ordered ONE (12:31)
[2023-08-09 12:38] VITALS: BP 157/74; TEMP 98.1; O2SAT 100
== END 2023-08-09 12:55 | disposition home or self-care (01) ==
LOC: M SDC 10:59
PROVIDERS: ATTEND Ophthalmology
DX: H25.11 Age-related nuclear cataract, right eye (principal); I10 Essential (primary) hypertension; E78.00 Pure hypercholesterolemia, unspecified; G47.30 Sleep apnea, unspecified; Z79.899 Other long term (current) drug therapy; Z79.82 Long term (current) use of aspirin
CPT/HCPCS: 66984; J0697; J1097; J2250; J3010; V2788

== ENCOUNTER → 2024-01-11 08:42 | Day surgery (SDC) | payer MEDICARE ==
[2023-01-10] MEDS: NS 1,000 ML IV ONE (09:25)
[2023-01-10 10:56] VITALS: TEMP 98.1
[2023-01-10 11:15] VITALS: BP 131/73; O2SAT 99
[~2024-01-11] VITALS: Ht 175.3 cm; Wt 94.3 kg
[~2024-01-11 08:42] MED LIST changes: +LIDOCAINE 2% 100MG/5ML SDV (FOR ANES.) As Ordered ONE; -MIDAZOLAM INJ 2MG/2ML VIAL As Ordered ONE; +propofoL 200 MG/20 ML VIAL As Ordered ONE
== END | disposition home or self-care (01) ==
LOC: M OPP 01-10 08:54
PROVIDERS: ATTEND Internal Medicine Gastroenterology
DX: Z12.11 Encounter for screening for malignant neoplasm of colon (principal); Z80.0 Family history of malignant neoplasm of digestive organs; K64.0 First degree hemorrhoids; K31.7 Polyp of stomach and duodenum; K22.89 Other specified disease of esophagus; K29.50 Unspecified chronic gastritis without bleeding; R12 Heartburn; Z79.02 Long term (current) use of antithrombotics/antiplatelets; Z79.52 Long term (current) use of systemic steroids; Z79.891 Long term (current) use of opiate analgesic; Z79.899 Other long term (current) drug therapy
CPT/HCPCS: 43239; 88305; G0105; J3010

== ENCOUNTER → 2024-03-19 | Outpatient (CLI) | payer MEDICARE ==
[~2024-03-19] MED LIST changes: +GABA-1172 PO; -GABA-282 PO; -LIDOCAINE 2% 100MG/5ML SDV (FOR ANES.) As Ordered ONE; -fentaNYL 100 MCG/2 ML INJECTION As Ordered ONE; -propofoL 200 MG/20 ML VIAL As Ordered ONE
[2024-03-19 12:56] LABS: ALBUMIN 4.2 G/DL (3.2-5.2); ALKALINE PHOSPHATASE 82 U/L (46-116); ALT/SGPT 33 U/L (7.0-40); AST/SGOT 21 U/L (<34); BILIRUBIN,TOTAL 1.1 MG/DL (0.3-1.2); BLOOD UREA NITROGEN 15 MG/DL (9-23); CALCIUM LEVEL 9.8 MG/DL (8.3-10.6); CARBON DIOXIDE LEVEL 26 MMOL/L (20-31); CHLORIDE LEVEL 106 MMOL/L (98-107); CHOLESTEROL LEVEL 139 MG/DL (<200); CREATININE FOR GFR 0.82 MG/DL (0.70-1.30); GLOMERULAR FILTRATION RATE > 60.0 (>49); GLUCOSE, FASTING 96 MG/DL (74-106); HDL CHOLESTEROL 65.9 MG/DL (>40); LDL CHOLESTEROL 59.5 MG/DL (<100); NON-HDL-C 73.1 MG/DL; POTASSIUM SERUM 4.1 MMOL/L (3.5-5.1); PSA SCREENING 0.59 NG/ML (< 4.00); SODIUM LEVEL 138 MMOL/L (136-145); TOTAL PROTEIN 7.5 G/DL (5.7-8.2); TRIGLYCERIDES LEVEL 68 MG/DL (<150)
== END ==
LOC: M WUC 09:01
PROVIDERS: ATTEND Family Medicine
DX: Z00.00 Encounter for general adult medical examination without abnormal findings (principal); E78.5 Hyperlipidemia, unspecified; Z12.5 Encounter for screening for malignant neoplasm of prostate
CPT/HCPCS: 36415; 80053; 80061; G0103

== ENCOUNTER → 2025-01-21 | Day surgery (SDC) | payer MEDICARE ==
[~2025-01-21] VITALS: Ht 175.3 cm; Wt 92.2 kg
[~2025-01-21] MED LIST changes: +LIDOCAINE 1% SDV 30 ML VIAL As Ordered ONE; +LR 1,000 ML IV SCH; +MIDAZOLAM INJ 2 MG/2 ML VIAL As Ordered ONE
[2025-01-21] MEDS: CYCLOPENTOLATE 1% OPHTH SOLN 2 ML BTL OS SCH (12:34)
[2025-01-21] MEDS: PHENYLEPHRINE 2.5% OPHTH SOL 2ML OS SCH (12:35)
[2025-01-21] MEDS: TETRACAINE 0.5% OPHTH SOLN 4ML OS SCH (12:35)
[2025-01-21] MEDS: FLURBIPROFEN 0.03% OPHTH SOLN 2.5 ML OS SCH (12:35)
[2025-01-21] MEDS: LIDOCAINE 1% SDV 5 ML VIAL As Ordered ONE (14:21)
[2025-01-21] MEDS: CEFUROXIME 1 MG/0.1 ML INTRACAMERAL INJ As Ordered ONE (14:21)
[2025-01-21 14:53] VITALS: BP 143/79; TEMP 97.2; O2SAT 100
== END | disposition home or self-care (01) ==
LOC: M SDC 10:50
PROVIDERS: ATTEND Ophthalmology
DX: H25.12 Age-related nuclear cataract, left eye (principal); I10 Essential (primary) hypertension; K21.9 Gastro-esophageal reflux disease without esophagitis; E78.00 Pure hypercholesterolemia, unspecified; G47.30 Sleep apnea, unspecified; Z79.899 Other long term (current) drug therapy; Z79.82 Long term (current) use of aspirin; Z98.42 Cataract extraction status, left eye; Z96.1 Presence of intraocular lens
CPT/HCPCS: 66984; J0697; J2250; J3010; V2788

== ENCOUNTER → 2025-03-14 | Outpatient (REF) | payer MEDICARE ==
[~2025-03-14] MED LIST changes: -LIDOCAINE 1% SDV 30 ML VIAL As Ordered ONE; -LR 1,000 ML IV SCH; -MIDAZOLAM INJ 2 MG/2 ML VIAL As Ordered ONE
[2025-03-14 19:15] LABS: ALT/SGPT 31 U/L (7.0-40); AST/SGOT 25 U/L (<34); CALCIUM LEVEL 10.0 MG/DL (8.3-10.6); CARBON DIOXIDE LEVEL 28 MMOL/L (20-31); CHLORIDE LEVEL 99 MMOL/L (98-107); CHOLESTEROL LEVEL 151 MG/DL (<200); CHOLESTEROL RISK RATIO 1.64 (<5); CREATININE FOR GFR 0.83 MG/DL (0.70-1.30); GLOMERULAR FILTRATION RATE > 90.0 (>49); LDL CHOLESTEROL 49.2 MG/DL (<100); NON-HDL-C 59.4 MG/DL; POTASSIUM SERUM 4.4 MMOL/L (3.5-5.1); SODIUM LEVEL 135 MMOL/L (136-145); TRIGLYCERIDES LEVEL 51 MG/DL (<150)
[2025-03-14 19:20] LABS: BASO # 0.1 10^3/uL (0.0-0.2); BASO % 1.6 % (0.0-1.0); EOS # 0.3 10^3/uL (0.0-0.5); EOS % 5.4 % (0.0-3.0); LYMPH # 1.0 10^3/uL (1.5-5.0); LYMPH % 20.2 % (24.0-44.0); MONO # 1.2 10^3/uL (0.0-0.8); MONO % 23.0 % (2.0-8.0); NEUTROPHILS # 2.5 10^3/uL (1.5-8.5); NEUTROPHILS % 49.6 % (36.0-66.0); PLATELET COUNT, AUTOMATED 276 10^3/uL (150-450)
[2025-03-14 19:44] LABS: ESTIMATED AVERAGE GLUCOSE 117.0 MG/DL (60-110)
== END ==
LOC: M SFHCLERA 08:48
PROVIDERS: ATTEND Family Medicine
DX: Z00.00 Encounter for general adult medical examination without abnormal findings (principal); I10 Essential (primary) hypertension; E78.5 Hyperlipidemia, unspecified; N52.9 Male erectile dysfunction, unspecified; G47.00 Insomnia, unspecified; Z79.899 Other long term (current) drug therapy

== ENCOUNTER → 2025-03-20 | Outpatient (REF) | payer MEDICARE ==
[2025-03-20 20:04] LABS: BASO # 0.0 10^3/uL (0.0-0.2); BASO % 0.8 % (0.0-1.0); EOS # 0.3 10^3/uL (0.0-0.5); EOS % 6.3 % (0.0-3.0); LYMPH # 0.9 10^3/uL (1.5-5.0); LYMPH % 23.6 % (24.0-44.0); MONO # 0.9 10^3/uL (0.0-0.8); MONO % 23.6 % (2.0-8.0); NEUTROPHILS # 1.8 10^3/uL (1.5-8.5); NEUTROPHILS % 45.4 % (36.0-66.0); PLATELET COUNT, AUTOMATED 233 10^3/uL (150-450)
[2025-03-20 20:12] LABS: IRON (FE) 14.0 UG/DL (65-175); PERCENT SATURATION 3.1 % (19.7-50.0)
[2025-03-20 20:15] LABS: VITAMIN B12 LEVEL 929.0 PG/ML (211-911)
== END ==
LOC: M SFHCLERA 11:04
PROVIDERS: ATTEND Family Medicine
DX: D64.9 Anemia, unspecified (principal); D70.9 Neutropenia, unspecified

== ENCOUNTER 2025-05-09 09:15 | Day surgery (SDC) | payer MEDICARE ==
[~2025-05-09] VITALS: Ht 175.3 cm; Wt 93.1 kg
[~2025-05-09 09:15] MED LIST changes: +CHLO125TA PO
[2025-05-09] MEDS ORDERED: GLYCOPYRROLATE INJ 0.2 MG/ML 2 ML VIAL As Ordered ONE (10:22)
[2025-05-09] MEDS ORDERED: LIDOCAINE 2% 100 MG/5 ML SDV (FOR ANES.) As Ordered ONE (10:23)
[2025-05-09] MEDS ORDERED: PHENYLephrine 500MCG 5ML (100MCG/ML) SYRINGE As Ordered ONE (10:35)
[2025-05-09 10:46] VITALS: TEMP 98.7
[2025-05-09 11:01] VITALS: BP 92/53; O2SAT 98
== END 2025-05-09 11:15 | disposition home or self-care (01) ==
LOC: M OPP 09:15
PROVIDERS: ATTEND Surgery
DX: K64.0 First degree hemorrhoids (principal); D50.9 Iron deficiency anemia, unspecified; K29.70 Gastritis, unspecified, without bleeding; G47.30 Sleep apnea, unspecified; Z79.82 Long term (current) use of aspirin; Z79.899 Other long term (current) drug therapy
CPT/HCPCS: 43239; 88305; G0121; J1596; J2371

== ENCOUNTER → 2025-05-13 | Outpatient (CLI) | payer MEDICARE ==
[2025-05-13 12:39] LABS: BASO # 0.1 10^3/uL (0.0-0.2); BASO % 1.1 % (0.0-1.0); EOS # 0.2 10^3/uL (0.0-0.5); EOS % 5.3 % (0.0-3.0); LYMPH # 1.1 10^3/uL (1.5-5.0); LYMPH % 23.4 % (24.0-44.0); MONO # 1.1 10^3/uL (0.0-0.8); MONO % 23.9 % (2.0-8.0); NEUTROPHILS # 2.1 10^3/uL (1.5-8.5); NEUTROPHILS % 46.3 % (36.0-66.0); PLATELET COUNT, AUTOMATED 226 10^3/uL (150-450)
[2025-05-13 13:15] LABS: IRON (FE) 22.0 UG/DL (65-175)
[2025-05-13 13:17] LABS: PERCENT SATURATION 5.5 % (19.7-50.0)
== END ==
LOC: M WUC 10:43
PROVIDERS: ATTEND Family Medicine
DX: D50.9 Iron deficiency anemia, unspecified (principal)